=== PATIENT | female | born 1990 | race Caucasian/White ===

== ENCOUNTER 2018-11-03 18:35 | Outpatient (CLI) | payer MEDICAID ==
[~2018-11-03] VITALS: Ht 177.8 cm; Wt 80.7 kg
[2018-11-03 18:45] VITALS: BP 134/80
--- NOTE | 2018-11-03 19:03 | NUR ---
Patient presents to floor per ambulation accompanied by self. Appears in no distress. States she was at the [facility] due to decreased movement. She said they put her on the monitor and the heart rate was lower than normal so she came here. EFM applied. FHT's in 160's noted. Denies contractions, bleeding, or leaking fluid. TOCO applied. Abdomen soft and non-tender to palpation. Addendum: 11/03/18 at 1908 by ARIES DILLARD RN Patient arrived to unit at 1740.
--- NOTE | 2018-11-03 19:10 | NUR ---
REPORT RECEIVED AND CARES RESUMED BY THIS NURSE.
--- NOTE | 2018-11-03 19:30 | NUR ---
REPORT OF PT ARRIVAL AND C/O CALLED TO DR DAMON. ORDER RECEIVED TO D/C PT TO HOME TO F/U WITH DR ONEIL. ALSO INSTRUCT PT THAT SHE MAY TAKE ZANTAC 75 MG OTC FOR HEARTBURN.
[2018-11-03] MEDS ORDERED: PREN-142 PO (19:38)
--- NOTE | 2018-11-03 20:00 | NUR ---
PT D/C TO HOME IN STABLE CONDITION.
--- NOTE | 2018-11-04 18:19 | Physician Query-Final Dx ---
SHELLEY FREEMAN 11/04/18 1819: Clinic Account Progress/Dx Physician Query: Please give diagnosis Date of Service Nov 03, 2018 at 18:35 HADLEY DAMON MD 11/09/18 1256: Clinic Account Progress/Dx DIAGNOSIS: Diagnosis Decreased movement at 36 weeks. SHELLEY FREEMAN Nov 04, 2018 18:19 HADLEY DAMON MD Nov 09, 2018 12:56
== END 2018-11-03 20:00 | disposition home or self-care (01) ==
LOC: WSo 18:35 → LDRP 18:35 → WSo 20:00
PROVIDERS: ATTEND Family Medicine
DX: O36.8130 Decreased fetal movements, third trimester, not applicable or unspecified (principal); Z3A.36 36 weeks gestation of pregnancy
CPT/HCPCS: 99213